=== PATIENT | female | born 1975 | race Caucasian/White ===

== ENCOUNTER → 2019-05-15 | Outpatient (CLI) | payer BC | LOC: MAMMO 08:07 | DX: Z12.31 Encounter for screening mammogram for malignant neoplasm of breast (principal) ==

== ENCOUNTER → 2020-03-24 | Outpatient (REF) | LOC: LAB 11:47 | DX: Z00.00 Encounter for general adult medical examination without abnormal findings (principal); E78.5 Hyperlipidemia, unspecified ==

== ENCOUNTER → 2020-03-24 | Outpatient (CLI) | payer BC | LOC: RAD 12:03 | DX: J32.9 Chronic sinusitis, unspecified (principal) ==

== ENCOUNTER → 2020-07-10 | Outpatient (CLI) | payer BC | LOC: MAMMO 08:20 | DX: Z12.31 Encounter for screening mammogram for malignant neoplasm of breast (principal) ==

== ENCOUNTER → 2020-09-05 | Outpatient (REF) | LOC: LAB 19:00 | DX: N39.0 Urinary tract infection, site not specified (principal) ==

== ENCOUNTER → 2020-09-15 | Outpatient (CLI) | payer BC ==
[2020-09-15 18:21] LABS: URINE APPEARANCE CLEAR; URINE BILIRUBIN NEGATIVE (NEGATIVE); URINE BLOOD NEGATIVE (NEGATIVE); URINE COLOR YELLOW; URINE GLUCOSE NEGATIVE (NEGATIVE); URINE KETONE NEGATIVE (NEGATIVE); URINE LEUKOCYTE ESTERASE NEGATIVE (NEGATIVE); URINE NITRATE NEGATIVE (NEGATIVE); URINE PROTEIN(semi-quant) NEGATIVE (NEGATIVE); URINE UROBILINOGEN NORMAL (NORMAL); URINE WBC 0-1 /hpf (0-3)
== END ==
LOC: LAB 17:32
PROVIDERS: Family Medicine
DX: R30.9 Painful micturition, unspecified (principal)

== ENCOUNTER → 2021-07-10 | Outpatient (CLI) | payer BC ==
[2021-07-10 19:09] LABS: CLUE CELLS NOT OBSERVED (Not Observd)
== END ==
LOC: LAB 19:02
PROVIDERS: Nurse Practitioner Family
DX: R10.30 Lower abdominal pain, unspecified (principal)
CPT/HCPCS: Q0111

== ENCOUNTER → 2021-07-16 | Outpatient (CLI) | payer BC | LOC: RAD 09:56 | DX: R10.30 Lower abdominal pain, unspecified (principal) | CPT/HCPCS: Q9967 ==

== ENCOUNTER → 2021-07-21 | Outpatient (CLI) | payer BC | LOC: MAMMO 08:21 | DX: Z12.31 Encounter for screening mammogram for malignant neoplasm of breast (principal) ==

== ENCOUNTER 2022-01-05 08:00 | Outpatient (RCR) | payer BC | END 2022-02-03 16:00 | disposition still patient (30) | LOC: PT 08:00 | DX: M54.50 Low back pain, unspecified (principal) ==

== ENCOUNTER → 2022-01-27 | Outpatient (CLI) | payer BC | LOC: LAB 09:41 | DX: E87.6 Hypokalemia (principal) ==

== ENCOUNTER → 2022-04-13 | Outpatient (CLI) | payer BC ==
[2022-04-13 09:36] LABS: BASO # 0.08 K/mm3 (0.02-0.10); EOS # 0.26 K/mm3 (0.04-0.40); EOS % 3.8 % (1.0-5.0); HEMATOCRIT 39.5 % (37.0-47.0); HEMOGLOBIN 12.9 g/dL (12.5-16.0); LYMPH# 2.37 K/mm3 (1.50-4.00); MEAN CELL VOLUME 90 fl (78-100); MEAN CORPUSCULAR HEMOGLOBIN 30 pg (27-31); MEAN CORPUSCULAR HGB CONC 33 g/dL (33-37); MEAN PLATELET VOLUME 10.3 fl (7.4-10.4); MONO # 0.62 K/mm3 (0.20-0.80); NEU # 3.54 K/mm3 (1.40-6.50); PLATELET COUNT 304 K/mm3 (130-400); RED BLOOD COUNT 4.37 M/mm3 (4.10-5.30); RED CELL DISTRIBUTION WIDTH 12.9 % (11.5-14.5); WHITE BLOOD COUNT 6.9 K/mm3 (4.8-10.8)
[2022-04-13 09:38] LABS: ALBUMIN 4.2 g/dL (3.5-5.0); POTASSIUM 3.7 mmol/L (3.5-5.1)
[2022-04-13 09:39] LABS: CALCIUM 9.5 mg/dL (8.3-10.5)
[2022-04-13 09:42] LABS: TOTAL BILIRUBIN 0.4 mg/dL (0.2-1.2)
== END ==
LOC: LAB 09:14
PROVIDERS: Family Medicine
DX: Z00.00 Encounter for general adult medical examination without abnormal findings (principal); K21.9 Gastro-esophageal reflux disease without esophagitis; E66.01 Morbid (severe) obesity due to excess calories; M19.90 Unspecified osteoarthritis, unspecified site; J30.2 Other seasonal allergic rhinitis; E55.9 Vitamin D deficiency, unspecified; E78.5 Hyperlipidemia, unspecified; R73.9 Hyperglycemia, unspecified

== ENCOUNTER → 2023-04-30 | Outpatient (CLI) | payer BC ==
[2023-04-30 10:31] LABS: BASO # 0.06 K/mm3 (0.02-0.10); EOS # 0.78 K/mm3 (0.04-0.40); EOS % 9.8 % (1.0-5.0); HEMATOCRIT 42.1 % (37.0-47.0); HEMOGLOBIN 13.6 g/dL (12.5-16.0); MEAN CELL VOLUME 92 fl (78-100); MEAN CORPUSCULAR HEMOGLOBIN 30 pg (27-31); MEAN CORPUSCULAR HGB CONC 32 g/dL (33-37); MEAN PLATELET VOLUME 10.1 fl (7.4-10.4); MONO # 0.57 K/mm3 (0.20-0.80); NEU # 3.82 K/mm3 (1.40-6.50); PLATELET COUNT 318 K/mm3 (130-400); RED BLOOD COUNT 4.59 M/mm3 (4.10-5.30); RED CELL DISTRIBUTION WIDTH 13.1 % (11.5-14.5); WHITE BLOOD COUNT 7.9 K/mm3 (4.8-10.8)
[2023-04-30 10:42] LABS: ALBUMIN 4.1 g/dL (3.5-5.0)
[2023-04-30 10:43] LABS: CALCIUM 9.5 mg/dL (8.3-10.5)
[2023-04-30 10:44] LABS: TOTAL PROTEIN 8.2 g/dL (6.4-8.3)
[2023-04-30 10:46] LABS: TOTAL BILIRUBIN 0.4 mg/dL (0.2-1.2)
== END ==
LOC: LAB 10:10
PROVIDERS: Nurse Practitioner Family
DX: R00.8 Other abnormalities of heart beat (principal); R60.9 Edema, unspecified

== ENCOUNTER → 2023-07-06 | Outpatient (CLI) | payer BC | LOC: RAD 16:45 | DX: M47.816 Spondylosis without myelopathy or radiculopathy, lumbar region (principal) ==

== ENCOUNTER → 2023-08-04 | Outpatient (CLI) | payer BC | LOC: MAMMO 15:31 | DX: Z12.31 Encounter for screening mammogram for malignant neoplasm of breast (principal) ==

== ENCOUNTER → 2023-10-05 | Outpatient (CLI) | payer BC | LOC: LAB 17:38 | DX: R05.9 Cough, unspecified (principal) ==

== ENCOUNTER → 2024-04-03 | Outpatient (REF) | payer BC | LOC: LAB 08:42 | DX: J02.9 Acute pharyngitis, unspecified (principal); Z20.822 Contact with and (suspected) exposure to COVID-19 ==

== ENCOUNTER → 2024-06-14 | Outpatient (CLI) | payer BC | LOC: LAB 09:26 → RAD 09:26 | DX: M17.11 Unilateral primary osteoarthritis, right knee (principal); M19.071 Primary osteoarthritis, right ankle and foot; S89.91XA Unspecified injury of right lower leg, initial encounter; S99.921A Unspecified injury of right foot, initial encounter; X58.XXXA Exposure to other specified factors, initial encounter ==